=== PATIENT | male | born 1965 | race American Indian/Alaskan Native ===

== ENCOUNTER 2018-07-16 14:49 | Inpatient (IN) | payer MEDICAID, OTHER ==
--- NOTE | 2018-07-16 15:46 | EDM.PDOC ---
ED HPI GENERAL MEDICAL PROBLEM - General Chief Complaint: Diabetic Complaint Stated Complaint: AMBULANCE Time Seen by Provider: 07/16/18 15:43 Source of Information: Reports: Patient History Limitations: Reports: No Limitations - History of Present Illness INITIAL COMMENTS - FREE TEXT/NARRATIVE: was told by home health nurse to come for eval' is DM and not taking his Rx and decline to comment further. states doesn't feel well and legs been swollen few weeks not seen anyone for it. denies CP/SOB. is getting over a cold. - Related Data Allergies Allergy/AdvReac Type Severity Reaction Status Date / Time No Known Allergies Allergy Verified 07/16/18 15:09 Past Medical History HEENT History: Reports: Impaired Vision Cardiovascular History: Reports: Hypertension Other Cardiovascular History: Noncompliant HTN Endocrine/Metabolic History: Reports: Diabetes, Type II Other Endocrine/Metabolic History: noncompliant DM11 - Past Surgical History Musculoskeletal Surgical History: Reports: Amputation Social & Family History - Tobacco Use Smoking Status *Q: Former Smoker Used Tobacco, but Quit: Yes Month/Year Tobacco Last Used: 1999 - Caffeine Use Caffeine Use: Reports: Coffee, Soda - Recreational Drug Use Recreational Drug Use: No ED ROS GENERAL - Review of Systems Review Of Systems: ROS reveals no pertinent complaints other than HPI. ED EXAM GENERAL NO PERIP PULSE - Physical Exam Exam: See Below Exam Limited By: No Limitations General Appearance: Alert, WD/WN, Mild Distress, Other (general discomfort) Ears: Hearing Grossly Normal Throat/Mouth: Normal Voice, No Airway Compromise Head: Atraumatic Neck: Non-Tender, Full Range of Motion Respiratory/Chest: No Respiratory Distress, Rales, Rhonchi Cardiovascular: Regular Rate, Rhythm GI/Abdominal: Other (general discomfort) Extremities: Pedal Edema, Other (bilateral 3+ edema) Neurological: Alert, Oriented, Normal Cognition, Normal Gait, No Motor/Sensory Deficits Psychiatric: Flat Affect Skin Exam: Warm, Dry, Normal Color Lymphatic: No Adenopathy Course - Vital Signs Last Recorded V/S: Last Vital Signs Temp 37.3 C 07/16/18 15:09 Pulse 93 07/16/18 16:20 Resp 18 07/16/18 15:09 BP 154/87 H 07/16/18 16:20 Pulse Ox 100 07/16/18 16:20 - Orders/Labs/Meds Orders: Active Orders 24 hr Category Date Time Status UA RFX JON AND CULT IF INDIC [URIN] Stat Lab 07/16/18 15:42 Ordered Labs: Laboratory Tests 07/16/18 07/16/18 Range/Units 15:25 15:25 WBC 10.0 (5.0-10.0) 10^3/uL RBC 2.85 L (4.6-6.2) 10^6/uL Hgb 8.0 L (14.0-18.0) g/dL Hct 25.1 L (40.0-54.0) % MCV 88.1 (80-100) fL MCH 28.1 (27.0-34.0) pg MCHC 31.9 L (33.0-35.0) g/dL Plt Count 249 (150-450) 10^3/uL Neut % (Auto) 82.5 H (42.2-75.2) % Lymph % (Auto) 7.8 L (20.5-50.1) % [place] % (Auto) 7.2 (2-8) % Eos % (Auto) 2.4 (1.0-3.0) % Baso % (Auto) 0.1 (0.0-1.0) % Sodium 137 (135-145) mmol/L Potassium 4.1 (3.6-5.0) mmol/L Chloride 108 (101-111) mmol/L Carbon Dioxide 18.0 L (21.0-31.0) mmol/L Anion Gap 15.1 BUN 41 H (7-18) mg/dL Creatinine 2.7 H (0.6-1.3) mg/dL Est Cr Clr Drug Dosing 32.92 mL/min Estimated GFR (MDRD) 25 BUN/Creatinine Ratio 15.18 Glucose 125 H (74-105) mg/dL Calcium 8.1 L (8.4-10.2) mg/dl Total Bilirubin 1.3 H (0.2-1.0) mg/dL AST 24 (10-42) IU/L ALT 12 (10-60) IU/L Alkaline Phosphatase 93 (42-121) IU/L B-Natriuretic Peptide 3220 H (0-100) pg/ml Total Protein 7.6 (6.7-8.2) g/dl Albumin 2.6 L (3.2-5.5) g/dl Globulin 5.0 Albumin/Globulin Ratio 0.52 Amylase 50 (28-100) U/L Lipase 26 (22-51) U/L - Re-Assessments/Exams Free Text/Narrative Re-Assessment/Exam: 07/16/18 16:[address] Shepard who kindly admitted pt Departure - Departure Time of Disposition: 16:39 Disposition: Admitted As Inpatient 64 Condition: Fair Clinical Impression: CHF (congestive heart failure) Qualifiers: Heart failure type: unspecified Heart failure chronicity: unspecified Qualified Code(s): I50.9 - Heart failure, unspecified - Discharge Information Forms: ED Department Discharge - My Orders Last 24 Hours: My Active Orders 07/16/18 15:42 UA RFX JON AND CULT IF INDIC [URIN] Stat - Assessment/Plan Last 24 Hours: My Active Orders 07/16/18 15:42 UA RFX JON AND CULT IF INDIC [URIN] Stat
[2018-07-16 16:03] LABS: ANION GAP 15.1
--- NOTE | 2018-07-16 16:11 | CR ---
Clinical history: 53-year-old male with "poor lung sounds". Interpretation: Upright AP portable chest film reveals less than optimal inspiratory effort obese male. Midlung atelectasis or fluid in the minor fissure on the right. (No previous films for comparison) Cardiac silhouette crowded by diaphragms but no cephalization of flow, signs of alveolar edema or dependent pleural effusion. No lung mass, hilar lymphadenopathy or focal lobar pneumonia. No pneumothorax.
[2018-07-16] MEDS ORDERED: Ondansetron 4 MG Tab.DIS PO PRN (17:45)
[2018-07-16] MEDS ORDERED: Promethazine 25 MG Tab PO PRN (17:45)
[2018-07-16] MEDS ORDERED: Acetaminophen 325 MG Tab PO PRN (17:45)
[2018-07-16] MEDS ORDERED: Bisacodyl 5 MG Tab PO PRN (17:45)
[2018-07-16] MEDS ORDERED: Ondansetron 4 MG/2 ML SDV IVPUSH PRN (17:45)
[2018-07-16] MEDS ORDERED: Docusate Sodium 100 MG Cap PO PRN (17:45)
[2018-07-16] MEDS ORDERED: Furosemide 40 MG/4 ML VIAL IVPUSH ONE (17:53)
--- NOTE | 2018-07-16 17:59 | PCM.HP ---
H&P History of Present Illness - General Date of Service: 07/16/18 Admit Problem/Dx: Admission Diagnosis/Problem Admission Diagnosis/Problem Sepsis, anasarca, acute renal failure Source of Information: Patient - History of Present Illness Initial Comments - Free Text/Narative: Mr. 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 He reports that his sister has a visiting nurse who came to attend to the patient' s sister today. Nurse was asked to see him due to discharge from his left foot. He states that the nurse told him to come to the ED. He reports that his foot has been having discharge and malodor for a few days. Also states that he noticed that there is "fluid in my legs" today. He denies foot pain, fevers, chills, chest pain, nausea, abdominal pain, diarrhea, constipation, dysuria, hematuria, or any other symptoms. He reports that he is on insulin but does not recall the amount he is supposed to take. Also reports that he takes a medication for blood pressure. On chart review, patient was seen in [facility] in 2007 for necrotic right second toe. At that time he was on Lisinopril 10 mg PO daily. He was also on novolog 5 units TID and lantus 1 unit at bedtime. - Related Data Allergies/Adverse Reactions: Allergies Allergy/AdvReac Type Severity Reaction Status Date / Time No Known Allergies Allergy Verified 07/16/18 18:30 Home Medications: Home Meds . [Unable to Verify Home Med List] 07/16/18 [History] Past Medical History HEENT History: Reports: Impaired Vision Cardiovascular History: Reports: Hypertension Other Cardiovascular History: Noncompliant HTN Musculoskeletal History: Reports: Other (See Below) (Osteomyelitis) Endocrine/Metabolic History: Reports: Diabetes, Type II Other Endocrine/Metabolic History: noncompliant DM11 - Past Surgical History Musculoskeletal Surgical History: Reports: Amputation (Second toe of right foot. ) Social & Family History - Tobacco Use Smoking Status *Q: Former Smoker Used Tobacco, but Quit: Yes Month/Year Tobacco Last Used: 1999 - Caffeine Use Caffeine Use: Reports: Coffee, Soda - Alcohol Use Alcohol Use History: Yes Days Per Week of Alcohol Use: 1 Total Drinks Per Week Comment: 6 Alcohol Use Frequency: Binges, Weekly - Recreational Drug Use Recreational Drug Use: No H&P Review of Systems - Review of Systems: Review Of Systems: ROS reveals no pertinent complaints other than HPI. Exam - Exam Exam: See Below - Vital Signs Vital Signs: Last Vital Signs Temp 98.2 F 07/16/18 17:34 Pulse 102 H 07/16/18 17:34 Resp 20 07/16/18 17:34 BP 172/100 H 07/16/18 17:34 Pulse Ox 100 07/16/18 17:34 Weight: 280 lb - Exam General: Alert, Oriented, Cooperative HEENT: Conjunctiva Clear, EOMI, Hearing Intact, Mucosa Moist & [place] Neck: Supple, Trachea Midline Lungs: Clear to Auscultation, Normal Respiratory Effort Cardiovascular: Regular Rate, Regular Rhythm GI/Abdominal Exam: Normal Bowel Sounds, Soft Extremities: Other (4+ edema of bilateral lower extremities extending into the groin. Charcot deformity of the right foot, 2nd right toe amputation, purulent discharge from left toes, chronic venous stasis hyperpigmentation of bilateral lower extremities, onychomycosis. ) Skin: Other (Anasarca) Neuro Extensive - Mental Status: Alert, Oriented x3, Normal Mood/Affect, Normal Cognition, Memory Intact Psychiatric: Alert, Normal Affect, Normal Mood - Patient Data Lab Results Last 24 hrs: Laboratory Results - last 24 hr 07/16/18 07/16/18 Range/Units 15:25 15:25 WBC 10.0 (5.0-10.0) 10^3/uL RBC 2.85 L (4.6-6.2) 10^6/uL Hgb 8.0 L (14.0-18.0) g/dL Hct 25.1 L (40.0-54.0) % MCV 88.1 (80-100) fL MCH 28.1 (27.0-34.0) pg MCHC 31.9 L (33.0-35.0) g/dL Plt Count 249 (150-450) 10^3/uL Neut % (Auto) 82.5 H (42.2-75.2) % Lymph % (Auto) 7.8 L (20.5-50.1) % [place] % (Auto) 7.2 (2-8) % Eos % (Auto) 2.4 (1.0-3.0) % Baso % (Auto) 0.1 (0.0-1.0) % Sodium 137 (135-145) mmol/L Potassium 4.1 (3.6-5.0) mmol/L Chloride 108 (101-111) mmol/L Carbon Dioxide 18.0 L (21.0-31.0) mmol/L Anion Gap 15.1 BUN 41 H (7-18) mg/dL Creatinine 2.7 H (0.6-1.3) mg/dL Est Cr Clr Drug Dosing 32.92 mL/min Estimated GFR (MDRD) 25 BUN/Creatinine Ratio 15.18 Glucose 125 H (74-105) mg/dL Calcium 8.1 L (8.4-10.2) mg/dl Total Bilirubin 1.3 H (0.2-1.0) mg/dL AST 24 (10-42) IU/L ALT 12 (10-60) IU/L Alkaline Phosphatase 93 (42-121) IU/L B-Natriuretic Peptide 3220 H (0-100) pg/ml Total Protein 7.6 (6.7-8.2) g/dl Albumin 2.6 L (3.2-5.5) g/dl Globulin 5.0 Albumin/Globulin Ratio 0.52 Amylase 50 (28-100) U/L Lipase 26 (22-51) U/L Result Diagrams: 07/16/18 15:25 07/16/18 15:25 - Problem List (1) Sepsis due to cellulitis SNOMED Code(s): 20691892 ICD Code: L03.90 - CELLULITIS, UNSPECIFIED; A41.9 - SEPSIS, UNSPECIFIED ORGANISM Status: Acute Current Visit: Yes (2) Anasarca associated with disorder of kidney SNOMED Code(s): 01497823488134 ICD Code: N04.9 - NEPHROTIC SYNDROME WITH UNSPECIFIED MORPHOLOGIC CHANGES Status: Acute Current Visit: Yes (3) Acute renal failure SNOMED Code(s): 18912756 ICD Code: N17.9 - ACUTE KIDNEY FAILURE, UNSPECIFIED Status: Acute Current Visit: Yes (4) Diabetes mellitus SNOMED Code(s): 03672218 ICD Code: E11.9 - TYPE 2 DIABETES MELLITUS WITHOUT COMPLICATIONS Status: Acute Current Visit: Yes (5) Poor oral hygiene SNOMED Code(s): 515730408 ICD Code: Z91.89 - OTH PERSONAL RISK FACTORS, NOT ELSEWHERE CLASSIFIED Status: Acute Current Visit: Yes (6) Non-adherence to medical treatment SNOMED Code(s): 134412713 ICD Code: Z91.19 - PATIENT'S NONCOMPLIANCE W OTH MEDICAL TREATMENT AND REGIMEN Status: Acute Current Visit: Yes (7) Metabolic acidosis SNOMED Code(s): 88998200 ICD Code: E87.2 - ACIDOSIS Status: Acute Current Visit: Yes (8) Hypertension SNOMED Code(s): 84924476 ICD Code: I10 - ESSENTIAL (PRIMARY) HYPERTENSION Status: Acute Current Visit: Yes (9) CHF (congestive heart failure) SNOMED Code(s): 54542943 ICD Code: I50.9 - HEART FAILURE, UNSPECIFIED Status: Acute Current Visit : No Qualifiers: Heart failure type: unspecified Heart failure chronicity: unspecified Qualified Code(s): I50.9 - Heart failure, unspecified Problem List Initiated/Reviewed/Updated: Yes Orders Last 24hrs: Active Orders 24 hr Category Date Time Status Patient Status [ADT] Routine ADT 07/16/18 17:45 Ordered Blood Glucose Check, Bedside [RC] QIDACANDBED Care 07/16/18 17:45 Ordered Cardiac Monitoring [RC] CONTINUOUS Care 07/16/18 17:46 Ordered Height and Weight [RC] DAILY Care 07/16/18 17:45 Ordered Intake and Output [RC] QSHIFT Care 07/16/18 17:46 Ordered Oxygen Therapy [RC] PRN Care 07/16/18 17:45 Ordered Pulse Oximetry [RC] CONTINUOUS Care 07/16/18 17:46 Ordered Up ad [place] [RC] ASDIRECTED Care 07/16/18 17:45 Ordered VTE/DVT Education [RC] PER UNIT ROUTINE Care 07/16/18 17:45 Ordered Vital Signs [RC] Q4H Care 07/16/18 17:45 Ordered Nothing per Oral After Midnight Diet [DIET] Diet 07/17/18 Breakfast Ordered Foot wo Cont Bi [CT] Routine Exams 07/16/18 17:51 Ordered C-REACTIVE PROTEIN [REF] Routine Lab 07/16/18 17:45 Ordered CULTURE BLOOD [BC] Stat Lab 07/16/18 17:50 Ordered CULTURE BLOOD [BC] Stat Lab 07/16/18 17:50 Ordered ESR [SEDIMENTATION RATE MANUAL] [HEME] Routine Lab 07/16/18 17:52 Ordered UA RFX JON AND CULT IF INDIC [URIN] Stat Lab 07/16/18 15:42 Ordered Acetaminophen [Tylenol] Med 07/16/18 17:45 Ordered 650 mg PO Q4H PRN Bisacodyl [Dulcolax] Med 07/16/18 17:45 Ordered 5 mg PO DAILY PRN Docusate Sodium [Colace] Med 07/16/18 17:45 Ordered 100 mg PO BID PRN Furosemide [Lasix] Med 07/16/18 17:53 Once 80 mg IVPUSH NOW ONE Heparin Sodium Med 07/16/18 22:00 Ordered 5,000 units SUBCUT Q8HR Ondansetron [Zofran ODT] Med 07/16/18 17:45 Ordered 4 mg PO Q6H PRN Ondansetron [Zofran] Med 07/16/18 17:45 Ordered 4 mg IVPUSH Q6H PRN Promethazine [Phenergan] Med 07/16/18 17:45 Ordered 25 mg PO Q6H PRN Blood Culture x2 Reflex Set [OM.PC] Stat Oth 07/16/18 17:45 Ordered Resuscitation Status Routine Resus Stat 07/16/18 17:45 Ordered Medication Orders Acetaminophen (Tylenol) 650 mg PO Q4H PRN PRN Reason: Pain Bisacodyl (Dulcolax) 5 mg PO DAILY PRN PRN Reason: Constipation Docusate Sodium (Colace) 100 mg PO BID PRN PRN Reason: Constipation Furosemide (Lasix) 80 mg IVPUSH NOW ONE Stop: 07/16/18 17:54 Heparin Sodium (Porcine) (Heparin Sodium) 5,000 units SUBCUT Q8HR DANDY Ondansetron HCl (Zofran Odt) 4 mg PO Q6H PRN PRN Reason: nausea, able to take PO Ondansetron HCl (Zofran) 4 mg IVPUSH Q6H PRN PRN Reason: Nausea/Vomiting Promethazine HCl (Phenergan) 25 mg PO Q6H PRN PRN Reason: nausea, able to take PO Assessment/Plan Comment:: #Sepsis due to cellulitis/probable osteomyelitis: patient with malodorus drainage from left foot and swelling of the right foot concerning for osteomyelitis but definitely cellulitic. - Admit to inpatient - Obtain 2 sets of blood cultures - Received Clindamycin in the ED. - Check ESR and CRP - CT of the feet, without contrast due to renal function. - Vancomycin and Zosyn - NPO #Probable acute CHF: - Elevated BNP with anasarca. - 80 mg IV lasix x1 - Strict I/Os - Daily standing weights. - If adequate diuresis, will keep on 60 mg of lasix BID - Monitor renal function/electrolytes. - Echocardiogram - NPO after midnight. #Acute renal failure: Cr of 2.7; Bicarb of 18. Last documented Cr was 0.8 in 2007. - Suspect Cardiorenal syndrome - IV diuresis - Monitor renal function - Renally dose all medications - Avoid nephrotoxins. #DM: uncertain type. - Check Hb A1c - Start on Humalog 10 units with meals and Lantus 30 units qHS - Accuchecks AC and HS - SSI and hypoglycemia protocol. #Anemia: could be due to chronic disease or slow blood loss. Normocytic. - Obtain Iron profile - Monitor CBC, transfuse for Hb <7 or if symptomatic. DVT PPx: Heparin GI ppx: Protonix
[2018-07-16] MEDS ORDERED: 50% Dextrose in Water 50 ML Syringe IVPUSH PRN (18:40)
[2018-07-16] MEDS ORDERED: Glucagon,Human Recombinant 1 MG Vial IM PRN (18:40)
[2018-07-16] MEDS: Piperacillin/Tazobactam 3.375 GM in Sodium Chloride 0.9% 100 ML IV SCH ×2 (18:50→23:39)
[2018-07-16] MEDS ORDERED: Vancomycin 1.5 GM in Sodium Chloride 0.9% 500 ML IV SCH (19:00)
[2018-07-16] MEDS ORDERED: Insulin Glarg,Human.Rec.Analog 100 UNIT/ML ML SUBCUT SCH (21:00)
[2018-07-16] MEDS: Heparin Sodium 5,000 Units/ML Vial SUBCUT SCH (21:39)
[2018-07-16] MEDS: Sodium Chloride 0.9% 10 ML Syringe FLUSH PRN (23:39)
[2018-07-17] MEDS: Piperacillin/Tazobactam 3.375 GM in Sodium Chloride 0.9% 100 ML IV SCH ×3 (05:33→18:03)
[2018-07-17] MEDS: Sodium Chloride 0.9% 10 ML Syringe FLUSH PRN ×3 (05:33→22:34)
[2018-07-17] MEDS: Heparin Sodium 5,000 Units/ML Vial SUBCUT SCH ×3 (05:38→21:46)
[2018-07-17] MEDS: Insulin Lispro 100 Units/ML 3 ML Vial SUBCUT SCH ×2 (08:01→13:08)
[2018-07-17 09:18] LABS: ANION GAP 14.9
--- NOTE | 2018-07-17 12:28 | PCM.PN ---
- General Info Date of Service: 07/17/18 Admission Dx/Problem (Free Text): Admission Diagnosis/Problem Admission Diagnosis/Problem Sepsis, anasarca, acute renal failure Functional Status: Reports: Tolerating Diet, Ambulating, Urinating - Review of Systems General: Reports: No Symptoms HEENT: Reports: No Symptoms Pulmonary: Reports: Shortness of Breath Cardiovascular: Reports: No Symptoms Gastrointestinal: Reports: No Symptoms Genitourinary: Reports: No Symptoms Musculoskeletal: Reports: Joint Swelling Skin: Reports: No Symptoms Neurological: Reports: No Symptoms Psychiatric: Reports: No Symptoms - Patient Data Vitals - Most Recent: Last Vital Signs Temp 99.2 F 07/17/18 07:08 Pulse 92 07/17/18 07:08 Resp 16 07/17/18 07:08 BP 137/58 L 07/17/18 07:08 Pulse Ox 97 07/17/18 07:08 Weight - Most Recent: 262 lb 9.6 oz I&O - Last 24 Hours: Intake & Output 07/16/18 07/17/18 07/17/18 22:59 06:59 14:59 Intake Total 849 357 Output Total 600 1600 650 Balance 249 1243 -650 Lab Results Last 24 Hours: Laboratory Results - last 24 hr 07/16/18 07/16/18 07/16/18 Range/Units 15:25 15:25 15:25 WBC 10.0 (5.0-10.0) 10^3/uL RBC 2.85 L (4.6-6.2) 10^6/uL Hgb 8.0 L (14.0-18.0) g/dL Hct 25.1 L (40.0-54.0) % MCV 88.1 (80-100) fL MCH 28.1 (27.0-34.0) pg MCHC 31.9 L (33.0-35.0) g/dL Plt Count 249 (150-450) 10^3/uL Neut % (Auto) 82.5 H (42.2-75.2) % Lymph % (Auto) 7.8 L (20.5-50.1) % Evans % (Auto) 7.2 (2-8) % Eos % (Auto) 2.4 (1.0-3.0) % Baso % (Auto) 0.1 (0.0-1.0) % ESR 105 H (0-15) mm/hr Sodium 137 (135-145) mmol/L Potassium 4.1 (3.6-5.0) mmol/L Chloride 108 (101-111) mmol/L Carbon Dioxide 18.0 L (21.0-31.0) mmol/L Anion Gap 15.1 BUN 41 H (7-18) mg/dL Creatinine 2.7 H (0.6-1.3) mg/dL Est Cr Clr Drug Dosing 32.92 mL/min Estimated GFR (MDRD) 25 BUN/Creatinine Ratio 15.18 Glucose 125 H (74-105) mg/dL POC Glucose (70-105) mg/dl Calcium 8.1 L (8.4-10.2) mg/dl Phosphorus (2.5-4.6) mg/dL Magnesium (1.8-2.5) mg/dL Total Bilirubin 1.3 H (0.2-1.0) mg/dL AST 24 (10-42) IU/L ALT 12 (10-60) IU/L Alkaline Phosphatase 93 (42-121) IU/L C-Reactive Protein (0.0-1.3) mg/dL B-Natriuretic Peptide 3220 H (0-100) pg/ml Total Protein 7.6 (6.7-8.2) g/dl Albumin 2.6 L (3.2-5.5) g/dl Globulin 5.0 Albumin/Globulin Ratio 0.52 Amylase 50 (28-100) U/L Lipase 26 (22-51) U/L Urine Color (YELLOW) Urine Appearance (CLEAR) Urine pH (5.0-9.0) Ur Specific [place] (1.005-1.030) Urine Protein (NEGATIVE) Urine Glucose (UA) (NEGATIVE) Urine Ketones (NEGATIVE) Urine Occult Blood (NEGATIVE) Urine Nitrite (NEGATIVE) Urine Bilirubin (NEGATIVE) Urine Urobilinogen (0.2-1.0) mg/dL Ur Leukocyte Esterase (NEGATIVE) Urine RBC /HPF Urine WBC (0-5/HPF) /HPF Ur Epithelial Cells /HPF Urine Bacteria (0-FEW/HPF) /HPF Urine Mucus /LPF Urine Yeast (0/HPF) /HPF 07/16/18 07/16/18 07/16/18 Range/Units 15:25 19:20 21:04 WBC (5.0-10.0) 10^3/uL RBC (4.6-6.2) 10^6/uL Hgb (14.0-18.0) g/dL Hct (40.0-54.0) % MCV (80-100) fL MCH (27.0-34.0) pg MCHC (33.0-35.0) g/dL Plt Count (150-450) 10^3/uL Neut % (Auto) (42.2-75.2) % Lymph % (Auto) (20.5-50.1) % Evans % (Auto) (2-8) % Eos % (Auto) (1.0-3.0) % Baso % (Auto) (0.0-1.0) % ESR (0-15) mm/hr Sodium (135-145) mmol/L Potassium (3.6-5.0) mmol/L Chloride (101-111) mmol/L Carbon Dioxide (21.0-31.0) mmol/L Anion Gap BUN (7-18) mg/dL Creatinine (0.6-1.3) mg/dL Est Cr Clr Drug Dosing mL/min Estimated GFR (MDRD) BUN/Creatinine Ratio Glucose (74-105) mg/dL POC Glucose 145 H (70-105) mg/dl Calcium (8.4-10.2) mg/dl Phosphorus (2.5-4.6) mg/dL Magnesium (1.8-2.5) mg/dL Total Bilirubin (0.2-1.0) mg/dL AST (10-42) IU/L ALT (10-60) IU/L Alkaline Phosphatase (42-121) IU/L C-Reactive Protein 9.4 H (0.0-1.3) mg/dL B-Natriuretic Peptide (0-100) pg/ml Total Protein (6.7-8.2) g/dl Albumin (3.2-5.5) g/dl Globulin Albumin/Globulin Ratio Amylase (28-100) U/L Lipase (22-51) U/L Urine Color Yellow (YELLOW) Urine Appearance Clear (CLEAR) Urine pH 5.5 (5.0-9.0) Ur Specific [place] 1.020 (1.005-1.030) Urine Protein >=300 H (NEGATIVE) Urine Glucose (UA) Negative (NEGATIVE) Urine Ketones Negative (NEGATIVE) Urine Occult Blood Moderate H (NEGATIVE) Urine Nitrite Negative (NEGATIVE) Urine Bilirubin Negative (NEGATIVE) Urine Urobilinogen 1.0 (0.2-1.0) mg/dL Ur Leukocyte Esterase Negative (NEGATIVE) Urine RBC 30-40 H /HPF Urine WBC 0-5 (0-5/HPF) /HPF Ur Epithelial Cells Few /HPF Urine Bacteria Few (0-FEW/HPF) /HPF Urine Mucus Few H /LPF Urine Yeast Few H (0/HPF) /HPF 07/17/18 07/17/18 07/17/18 Range/Units 06:55 08:52 08:52 WBC 6.8 (5.0-10.0) 10^3/uL RBC 2.65 L (4.6-6.2) 10^6/uL Hgb 7.4 L (14.0-18.0) g/dL Hct 23.7 L (40.0-54.0) % MCV 89.4 (80-100) fL MCH 27.9 (27.0-34.0) pg MCHC 31.2 L (33.0-35.0) g/dL Plt Count 187 (150-450) 10^3/uL Neut % (Auto) (42.2-75.2) % Lymph % (Auto) (20.5-50.1) % Evans % (Auto) (2-8) % Eos % (Auto) (1.0-3.0) % Baso % (Auto) (0.0-1.0) % ESR (0-15) mm/hr Sodium 137 (135-145) mmol/L Potassium 3.9 (3.6-5.0) mmol/L Chloride 109 (101-111) mmol/L Carbon Dioxide 17.0 L (21.0-31.0) mmol/L Anion Gap 14.9 BUN 43 H (7-18) mg/dL Creatinine 2.8 H (0.6-1.3) mg/dL Est Cr Clr Drug Dosing 30.78 mL/min Estimated GFR (MDRD) 24 BUN/Creatinine Ratio Glucose 100 (74-105) mg/dL POC Glucose 92 (70-105) mg/dl Calcium 7.8 L (8.4-10.2) mg/dl Phosphorus 3.4 (2.5-4.6) mg/dL Magnesium 1.7 L (1.8-2.5) mg/dL Total Bilirubin (0.2-1.0) mg/dL AST (10-42) IU/L ALT (10-60) IU/L Alkaline Phosphatase (42-121) IU/L C-Reactive Protein (0.0-1.3) mg/dL B-Natriuretic Peptide (0-100) pg/ml Total Protein (6.7-8.2) g/dl Albumin (3.2-5.5) g/dl Globulin Albumin/Globulin Ratio Amylase (28-100) U/L Lipase (22-51) U/L Urine Color (YELLOW) Urine Appearance (CLEAR) Urine pH (5.0-9.0) Ur Specific [place] (1.005-1.030) Urine Protein (NEGATIVE) Urine Glucose (UA) (NEGATIVE) Urine Ketones (NEGATIVE) Urine Occult Blood (NEGATIVE) Urine Nitrite (NEGATIVE) Urine Bilirubin (NEGATIVE) Urine Urobilinogen (0.2-1.0) mg/dL Ur Leukocyte Esterase (NEGATIVE) Urine RBC /HPF Urine WBC (0-5/HPF) /HPF Ur Epithelial Cells /HPF Urine Bacteria (0-FEW/HPF) /HPF Urine Mucus /LPF Urine Yeast (0/HPF) /HPF Med Orders - Current: Current Medications Acetaminophen (Tylenol) 650 mg PO Q4H PRN PRN Reason: Pain Bisacodyl (Dulcolax) 5 mg PO DAILY PRN PRN Reason: Constipation Dextrose/Water (Dextrose 50% In Water) 25 ml IVPUSH ASDIRECTED PRN PRN Reason: Hypoglycemia Docusate Sodium (Colace) 100 mg PO BID PRN PRN Reason: Constipation Glucagon (Glucagen) 1 mg IM ONETIME PRN PRN Reason: Hypoglycemia Heparin Sodium (Porcine) (Heparin Sodium) 5,000 units SUBCUT Q8HR [facility] Last Admin: 07/17/18 05:38 Dose: 5,000 units Piperacillin Sod/Tazobactam (Sod 3.375 gm/ Sodium Chloride) 100 mls @ 200 mls/ hr IV Q6H [facility] Last Infusion: 07/17/18 06:12 Dose: Infused Vancomycin HCl 1.5 gm/ Sodium (Chloride) 500 mls @ 333.333 mls/hr IV Q24H [facility] Last Admin: 07/16/18 19:43 Dose: 250 mls/hr Insulin Glargine (Lantus) 30 unit SUBCUT BEDTIME [facility] Last Admin: 07/16/18 21:45 Dose: Not Given Insulin Human Lispro (Humalog) 10 unit SUBCUT TIDAC [facility] Last Admin: 07/17/18 08:01 Dose: Not Given Ondansetron HCl (Zofran Odt) 4 mg PO Q6H PRN PRN Reason: nausea, able to take PO Ondansetron HCl (Zofran) 4 mg IVPUSH Q6H PRN PRN Reason: Nausea/Vomiting Promethazine HCl (Phenergan) 25 mg PO Q6H PRN PRN Reason: nausea, able to take PO Sodium Bicarbonate (Sodium Bicarbonate) 650 mg PO TID [facility] Sodium Chloride (Saline Flush) 10 ml FLUSH ASDIRECTED PRN PRN Reason: IV Use Last Admin: 07/17/18 05:33 Dose: 10 ml Vancomycin HCl (Pharmacy To Dose - Vancomycin) 1 dose .XX ASDIRECTED [facility] Discontinued Medications Furosemide (Lasix) 80 mg IVPUSH NOW ONE Stop: 07/16/18 17:54 Last Admin: 07/16/18 18:50 Dose: 80 mg - Exam General: Alert, Oriented HEENT: Pupils Equal, Pupils Reactive, EOMI, Mucous Membr. Moist/[place] Lungs: Normal Respiratory Effort, Crackles Cardiovascular: Regular Rate, Regular Rhythm, Tachycardia GI/Abdominal Exam: Normal Bowel Sounds, Non-Tender, Distended (with shifting dullness and fluid wave. ) Extremities: Pedal Edema (Edema of bilateral lower extremities up to the groin, 4++ Left arm with 2+ pitting edema.) Peripheral Pulses: 2+: Radial (L), Radial (R) Neurological: No New Focal Deficit Psy/Mental Status: Alert, Normal Affect - Problem List & Annotations (1) Sepsis due to cellulitis SNOMED Code(s): 71942529 Code(s): L03.90 - CELLULITIS, UNSPECIFIED; A41.9 - SEPSIS, UNSPECIFIED ORGANISM Status: Acute Current Visit: Yes (2) Anasarca associated with disorder of kidney SNOMED Code(s): 20038942411015 Code(s): N04.9 - NEPHROTIC SYNDROME WITH UNSPECIFIED MORPHOLOGIC CHANGES Status: Acute Current Visit: Yes (3) Acute renal failure SNOMED Code(s): 81271903 Code(s): N17.9 - ACUTE KIDNEY FAILURE, UNSPECIFIED Status: Acute Current Visit: Yes (4) Diabetes mellitus SNOMED Code(s): 56266040 Code(s): E11.9 - TYPE 2 DIABETES MELLITUS WITHOUT COMPLICATIONS Status: Acute Current Visit: Yes (5) Poor oral hygiene SNOMED Code(s): 555032850 Code(s): Z91.89 - OTH PERSONAL RISK FACTORS, NOT ELSEWHERE CLASSIFIED Status: Acute Current Visit: Yes (6) Non-adherence to medical treatment SNOMED Code(s): 327227581 Code(s): Z91.19 - PATIENT'S NONCOMPLIANCE W OTH MEDICAL TREATMENT AND REGIMEN Status: Acute Current Visit: Yes (7) Metabolic acidosis SNOMED Code(s): 63308483 Code(s): E87.2 - ACIDOSIS Status: Acute Current Visit: Yes (8) Hypertension SNOMED Code(s): 85978145 Code(s): I10 - ESSENTIAL (PRIMARY) HYPERTENSION Status: Acute Current Visit: Yes (9) CHF (congestive heart failure) SNOMED Code(s): 12168496 Code(s): I50.9 - HEART FAILURE, UNSPECIFIED Status: Acute Current Visit: No Qualifiers: Heart failure type: unspecified Heart failure chronicity: unspecified Qualified Code(s): I50.9 - Heart failure, unspecified - Problem List Review Problem List Initiated/Reviewed/Updated: Yes - My Orders Last 24 Hours: My Active Orders 07/16/18 15:25 CULTURE BLOOD [BC] Stat GLYCOSYLATED HEMOGLOBIN (HA1C) [REF] Routine IRON PNL (FE, TIBC, ETHAN, %SAT) [REF] Routine 07/16/18 17:45 Patient Status [ADT] Routine Blood Glucose Check, Bedside [RC] QIDACANDBED Height and Weight [RC] 0600 Oxygen Therapy [RC] PRN Up ad Perlita [RC] ASDIRECTED VTE/DVT Education [RC] PER UNIT ROUTINE Vital Signs [RC] Q4H Acetaminophen [Tylenol] 650 mg PO Q4H PRN Bisacodyl [Dulcolax] 5 mg PO DAILY PRN Docusate Sodium [Colace] 100 mg PO BID PRN Ondansetron [Zofran ODT] 4 mg PO Q6H PRN Ondansetron [Zofran] 4 mg IVPUSH Q6H PRN Promethazine [Phenergan] 25 mg PO Q6H PRN Blood Culture x2 Reflex Set [OM.PC] Stat 07/16/18 17:46 Cardiac Monitoring [RC] 09,21 Intake and Output [RC] QSHIFT Pulse Oximetry [RC] CONTINUOUS 07/16/18 17:51 Foot wo Cont Bi [CT] Routine 07/16/18 18:00 Piperacillin/Tazobactam [Zosyn] 3.375 gm Sodium Chloride 0.9% [Normal Saline] 100 ml IV Q6H 07/16/18 18:15 Pharmacy to Dose - Vancomycin 1 dose .XX ASDIRECTED 07/16/18 18:26 CULTURE BLOOD [BC] Stat 07/16/18 18:34 Code Status [Resuscitation Status] Routine 07/16/18 18:40 Diabetes Education [RC] Click to Edit Notify Provider [RC] PRN Consult to [employer] [CONS] Routine Dextrose 50% in Water 25 ml IVPUSH ASDIRECTED PRN Glucagon,Human Recombinant [GlucaGen] 1 mg IM ONETIME PRN 07/16/18 19:00 Vancomycin 1.5 gm Sodium Chloride 0.9% [Normal Saline] 500 ml IV Q24H 07/16/18 21:00 Insulin Glarg,Human.Rec.Analog [LantUS] 30 unit SUBCUT BEDTIME 07/16/18 22:00 Heparin Sodium 5,000 units SUBCUT Q8HR 07/16/18 22:12 Sodium Chloride 0.9% [Saline Flush] 10 ml FLUSH ASDIRECTED PRN 07/17/18 07:55 Foot wo Cont Lt [MR] Routine Foot wo Cont Rt [MR] Routine 07/17/18 08:00 Insulin Lispro [HumaLOG] 10 unit SUBCUT TIDAC 07/17/18 14:00 Sodium Bicarbonate 650 mg PO TID 07/17/18 Breakfast Nothing per Oral After Midnight Diet [DIET] 07/20/18 18:30 VANCOMYCIN TROUGH [CHEM] Timed - Plan Plan:: #Sepsis due to cellulitis/probable osteomyelitis: patient with malodorus drainage from left foot and swelling of the right foot concerning for osteomyelitis but definitely cellulitic. - Follow up on blood cultures - Received Clindamycin in the ED. - ESR and CRP elevated. - CT of the feet, without contrast due to renal function. - Vancomycin and Zosyn - MRI of bilateral feet #Probable acute CHF/anasarca: - Elevated BNP with anasarca. - 80 mg IV lasix BID - Strict I/Os - Daily standing weights. - Monitor renal function/electrolytes. - Echocardiogram #Acute renal failure: Cr of 2.7; Bicarb of 18. Last documented Cr was 0.8 in 2007. - Suspect Cardiorenal syndrome - IV diuresis - Monitor renal function - Renally dose all medications - Avoid nephrotoxins. #DM: uncertain type. - Check Hb A1c - Accuchecks AC and HS - SSI and hypoglycemia protocol. #Anemia: could be due to chronic disease or slow blood loss. Normocytic. - Obtain Iron profile - Monitor CBC, transfuse for Hb <7 or if symptomatic. #metabolic acidosis: - Sodium bicarb replacement #Poor oral care - Outpatient follow up with dentist. DVT PPx: Heparin GI ppx: Protonix
[2018-07-17] MEDS: Furosemide 40 MG/4 ML VIAL IVPUSH SCH (13:37)
[2018-07-17] MEDS: Sodium Bicarbonate 650 MG Tab PO SCH ×2 (13:40→20:24)
[2018-07-17] MEDS: Mineral Oil/White Petrolatum Crm 113 GM Jar TOP PRN (16:24)
[2018-07-17] MEDS: Vancomycin 1.5 GM in Sodium Chloride 0.9% 500 ML IV SCH (20:20)
[2018-07-18] MEDS: Heparin Sodium 5,000 Units/ML Vial SUBCUT SCH ×3 (05:51→21:46)
[2018-07-18 06:59] LABS: ANION GAP 13.9
[2018-07-18] MEDS: Furosemide 40 MG/4 ML VIAL IVPUSH SCH ×2 (07:55→14:49)
[2018-07-18] MEDS: Sodium Bicarbonate 650 MG Tab PO SCH ×3 (08:01→20:37)
[2018-07-18] MEDS: Mineral Oil/White Petrolatum Crm 113 GM Jar TOP PRN (10:07)
--- NOTE | 2018-07-18 10:37 | PCM.PN ---
- General Info Date of Service: 07/18/18 Admission Dx/Problem (Free Text): Admission Diagnosis/Problem Admission Diagnosis/Problem Sepsis, anasarca, acute renal failure Subjective Update: No acute events overnight. Reports that he is doing okay. Voiding a lot. Denies chest pain, shortness of breath, fevers, chills, abd pain, n/v/d/c, no dysuria or hematuria, no foot pain. - Review of Systems General: Reports: No Symptoms HEENT: Reports: No Symptoms Pulmonary: Reports: No Symptoms Cardiovascular: Reports: No Symptoms Gastrointestinal: Reports: No Symptoms Genitourinary: Reports: No Symptoms Musculoskeletal: Reports: No Symptoms (Edema), Other Skin: Reports: No Symptoms Neurological: Reports: No Symptoms Psychiatric: Reports: No Symptoms - Patient Data Vitals - Most Recent: Last Vital Signs Temp 98.4 F 07/18/18 07:35 Pulse 87 07/18/18 07:35 Resp 20 07/18/18 07:35 BP 137/85 07/18/18 07:35 Pulse Ox 100 07/18/18 07:35 Weight - Most Recent: 262 lb 9.6 oz I&O - Last 24 Hours: Intake & Output 07/17/18 07/18/18 07/18/18 22:59 06:59 14:59 Intake Total 1507 1030 460 Output Total 400 1480 Balance 1107 -450 460 Lab Results Last 24 Hours: Laboratory Results - last 24 hr 07/16/18 07/17/18 07/17/18 Range/Units 15:25 12:00 14:02 WBC (5.0-10.0) 10^3/uL RBC (4.6-6.2) 10^6/uL Hgb 7.6 L (14.0-18.0) g/dL Hct 23.9 L (40.0-54.0) % MCV (80-100) fL MCH (27.0-34.0) pg MCHC (33.0-35.0) g/dL Plt Count (150-450) 10^3/uL Sodium (135-145) mmol/L Potassium (3.6-5.0) mmol/L Chloride (101-111) mmol/L Carbon Dioxide (21.0-31.0) mmol/L Anion Gap BUN (7-18) mg/dL Creatinine (0.6-1.3) mg/dL Est Cr Clr Drug Dosing mL/min Estimated GFR (MDRD) Glucose (74-105) mg/dL POC Glucose 98 (70-105) mg/dl Calcium (8.4-10.2) mg/dl Iron 22 L (50-150) ug/dL TIBC 156 L (261-478) ug/dL Unsaturated IBC 134 L (155-355) ug/dL Transferrin % Sat 14.1 L (20.0-50.0) % Ferritin 233 (24-336) ng/mL 07/17/18 07/17/18 07/18/18 Range/Units 16:48 20:48 06:16 WBC 6.5 (5.0-10.0) 10^3/uL RBC 2.58 L (4.6-6.2) 10^6/uL Hgb 7.2 L (14.0-18.0) g/dL Hct 23.0 L (40.0-54.0) % MCV 89.1 (80-100) fL MCH 27.9 (27.0-34.0) pg MCHC 31.3 L (33.0-35.0) g/dL Plt Count 215 (150-450) 10^3/uL Sodium (135-145) mmol/L Potassium (3.6-5.0) mmol/L Chloride (101-111) mmol/L Carbon Dioxide (21.0-31.0) mmol/L Anion Gap BUN (7-18) mg/dL Creatinine (0.6-1.3) mg/dL Est Cr Clr Drug Dosing mL/min Estimated GFR (MDRD) Glucose (74-105) mg/dL POC Glucose 113 H 150 H (70-105) mg/dl Calcium (8.4-10.2) mg/dl Iron (50-150) ug/dL TIBC (261-478) ug/dL Unsaturated IBC (155-355) ug/dL Transferrin % Sat (20.0-50.0) % Ferritin (24-336) ng/mL 07/18/18 07/18/18 Range/Units 06:16 07:27 WBC (5.0-10.0) 10^3/uL RBC (4.6-6.2) 10^6/uL Hgb (14.0-18.0) g/dL Hct (40.0-54.0) % MCV (80-100) fL MCH (27.0-34.0) pg MCHC (33.0-35.0) g/dL Plt Count (150-450) 10^3/uL Sodium 137 (135-145) mmol/L Potassium 3.9 (3.6-5.0) mmol/L Chloride 109 (101-111) mmol/L Carbon Dioxide 18.0 L (21.0-31.0) mmol/L Anion Gap 13.9 BUN 40 H (7-18) mg/dL Creatinine 2.8 H (0.6-1.3) mg/dL Est Cr Clr Drug Dosing 30.78 mL/min Estimated GFR (MDRD) 24 Glucose 93 (74-105) mg/dL POC Glucose 89 (70-105) mg/dl Calcium 7.6 L (8.4-10.2) mg/dl Iron (50-150) ug/dL TIBC (261-478) ug/dL Unsaturated IBC (155-355) ug/dL Transferrin % Sat (20.0-50.0) % Ferritin (24-336) ng/mL Blaise Results Last 24 Hours: Microbiology 07/16/18 18:26 Aerobic Blood Culture - Preliminary Blood - Venous - Lab Draw Anaerobic Blood Culture - Preliminary NO GROWTH AFTER 1 DAY 07/16/18 15:25 Aerobic Blood Culture - Preliminary Blood - Venous NO GROWTH AFTER 1 DAY Anaerobic Blood Culture - Preliminary NO GROWTH AFTER 1 DAY Med Orders - Current: Current Medications Acetaminophen (Tylenol) 650 mg PO Q4H PRN PRN Reason: Pain Bisacodyl (Dulcolax) 5 mg PO DAILY PRN PRN Reason: Constipation Dextrose/Water (Dextrose 50% In Water) 25 ml IVPUSH ASDIRECTED PRN PRN Reason: Hypoglycemia Docusate Sodium (Colace) 100 mg PO BID PRN PRN Reason: Constipation Furosemide (Lasix) 80 mg IVPUSH BIDDIURETIC [facility]ANDY Stop: 07/19/18 08:01 Last Admin: 07/18/18 07:55 Dose: 80 mg Glucagon (Glucagen) 1 mg IM ONETIME PRN PRN Reason: Hypoglycemia Heparin Sodium (Porcine) (Heparin Sodium) 5,000 units SUBCUT Q8HR [facility] Last Admin: 07/18/18 05:51 Dose: 5,000 units Vancomycin HCl 1.5 gm/ Sodium (Chloride) 500 mls @ 333.333 mls/hr IV Q24H [facility] Last Admin: 07/17/18 20:20 Dose: 250 mls/hr Mineral Oil/White Petrolatum (Hydrocerin Crm) 0 gm TOP ASDIRECTED PRN PRN Reason: Dryness Last Admin: 07/18/18 10:07 Dose: 1 applic Ondansetron HCl (Zofran Odt) 4 mg PO Q6H PRN PRN Reason: nausea, able to take PO Ondansetron HCl (Zofran) 4 mg IVPUSH Q6H PRN PRN Reason: Nausea/Vomiting Promethazine HCl (Phenergan) 25 mg PO Q6H PRN PRN Reason: nausea, able to take PO Sodium Bicarbonate (Sodium Bicarbonate) 650 mg PO TID [facility] Last Admin: 07/18/18 08:01 Dose: 650 mg Sodium Chloride (Saline Flush) 10 ml FLUSH ASDIRECTED PRN PRN Reason: IV Use Last Admin: 07/17/18 22:34 Dose: 10 ml Vancomycin HCl (Pharmacy To Dose - Vancomycin) 1 dose .XX ASDIRECTED [facility] Discontinued Medications Furosemide (Lasix) 80 mg IVPUSH NOW ONE Stop: 07/16/18 17:54 Last Admin: 07/16/18 18:50 Dose: 80 mg Piperacillin Sod/Tazobactam (Sod 3.375 gm/ Sodium Chloride) 100 mls @ 200 mls/ hr IV Q6H [facility] Last Infusion: 07/17/18 18:42 Dose: Infused Vancomycin HCl 1.5 gm/ Sodium (Chloride) 500 mls @ 333.333 mls/hr IV Q24H [facility] Last Admin: 07/16/18 19:43 Dose: 250 mls/hr Insulin Glargine (Lantus) 30 unit SUBCUT BEDTIME [facility] Last Admin: 07/16/18 21:45 Dose: Not Given Insulin Human Lispro (Humalog) 10 unit SUBCUT TIDAC [facility] Last Admin: 07/17/18 13:08 Dose: Not Given - Exam General: Alert, Oriented, Cooperative, No Acute Distress HEENT: Pupils Equal, Pupils Reactive, Mucous Membr. Moist/[place] Neck: Supple, Trachea Midline Lungs: Normal Respiratory Effort, Crackles (Bilateral lower lung fileds) Cardiovascular: Regular Rate, Regular Rhythm GI/Abdominal Exam: Normal Bowel Sounds, Soft, Non-Tender Extremities: Other (3++ pitting edema of bilateral lower extremities up to the thighs, lymphedema wraps in place. ) Peripheral Pulses: 2+: Radial (L), Radial (R) Skin: Warm Neurological: No New Focal Deficit Psy/Mental Status: Alert, Normal Affect, Normal Mood - Problem List & Annotations (1) Sepsis due to cellulitis SNOMED Code(s): 71821387 Code(s): L03.90 - CELLULITIS, UNSPECIFIED; A41.9 - SEPSIS, UNSPECIFIED ORGANISM Status: Acute Current Visit: Yes (2) Anasarca associated with disorder of kidney SNOMED Code(s): 13279367202590 Code(s): N04.9 - NEPHROTIC SYNDROME WITH UNSPECIFIED MORPHOLOGIC CHANGES Status: Acute Current Visit: Yes (3) Acute renal failure SNOMED Code(s): 26040917 Code(s): N17.9 - ACUTE KIDNEY FAILURE, UNSPECIFIED Status: Acute Current Visit: Yes (4) Diabetes mellitus SNOMED Code(s): 69173795 Code(s): E11.9 - TYPE 2 DIABETES MELLITUS WITHOUT COMPLICATIONS Status: Acute Current Visit: Yes (5) Poor oral hygiene SNOMED Code(s): 040216224 Code(s): Z91.89 - OT PERSONAL RISK FACTORS, NOT ELSEWHERE CLASSIFIED Status: Acute Current Visit: Yes (6) Non-adherence to medical treatment SNOMED Code(s): 717538098 Code(s): Z91.19 - PATIENT'S NONCOMPLIANCE W OTH MEDICAL TREATMENT AND REGIMEN Status: Acute Current Visit: Yes (7) Metabolic acidosis SNOMED Code(s): 00953474 Code(s): E87.2 - ACIDOSIS Status: Acute Current Visit: Yes (8) Hypertension SNOMED Code(s): 76959915 Code(s): I10 - ESSENTIAL (PRIMARY) HYPERTENSION Status: Acute Current Visit: Yes (9) CHF (congestive heart failure) SNOMED Code(s): 36882988 Code(s): I50.9 - HEART FAILURE, UNSPECIFIED Status: Acute Current Visit: No Qualifiers: Heart failure type: unspecified Heart failure chronicity: unspecified Qualified Code(s): I50.9 - Heart failure, unspecified - Problem List Review Problem List Initiated/Reviewed/Updated: Yes - My Orders Last 24 Hours: My Active Orders 07/17/18 14:00 Furosemide [Lasix] 80 mg IVPUSH BIDDIURETIC Sodium Bicarbonate 650 mg PO TID 07/17/18 14:27 Communication Order [RC] 08,20 OT Evaluation and Treatment [CONS] Routine 07/17/18 14:28 Wound Care [RC] ,07/17/18 16:12 Communication Order [RC] ,07/17/18 16:14 Mineral Oil/Petrolatum,White [Hydrocerin Crm] See Dose Instructions TOP ASDIRECTED PRN 07/17/18 20:00 Vancomycin 1.5 gm Sodium Chloride 0.9% [Normal Saline] 500 ml IV Q24H 07/17/18 Dinner 2 Gram Sodium Diet [DIET] Consistent Carbohydrate Diet [DIET] 07/18/18 13:30 HEMOGLOBIN/HEMATOCRIT,HH [HEME] Routine 07/19/18 05:11 BASIC METABOLIC PANEL,BMP [CHEM] AM CBC W/O DIFF,HEMOGRAM [HEME] AM 07/20/18 19:30 VANCOMYCIN TROUGH [CHEM] Timed - Plan Plan:: #Sepsis due to cellulitis/probable osteomyelitis: patient with malodorus drainage from left foot and swelling of the right foot concerning for osteomyelitis but definitely cellulitic. - Follow up on blood cultures, probable CoNS - Received Clindamycin in the ED. - ESR and CRP elevated. - CT of the feet, without contrast due to renal function. - Continue Vancomycin - Discontinue Zosyn - MRI of bilateral feet with no osteomyelitis. #Probable acute CHF/anasarca: - Elevated BNP with anasarca. - 80 mg IV lasix BID - Strict I/Os - Daily standing weights. - Monitor renal function/electrolytes. - Echocardiogram #Acute renal failure: Cr of 2.7; Bicarb of 18. Last documented Cr was 0.8 in 2007. - Suspect Cardiorenal syndrome vs CKD component - IV diuresis - Monitor renal function - Renally dose all medications - Avoid nephrotoxins. #DM: uncertain type. - Check Hb A1c - Accuchecks AC and HS - SSI and hypoglycemia protocol. #Anemia: could be due to chronic disease or slow blood loss. Normocytic. - Follow up on Iron profile - Monitor CBC, transfuse for Hb <7 or if symptomatic. #metabolic acidosis: - Sodium bicarb replacement #Poor oral care - Outpatient follow up with dentist. DVT PPx: Heparin GI ppx: Diabetic diet
[2018-07-18] MEDS: Sodium Chloride 0.9% 10 ML Syringe FLUSH PRN ×2 (20:32→22:42)
[2018-07-18] MEDS: Vancomycin 1.5 GM in Sodium Chloride 0.9% 500 ML IV SCH (20:34)
[2018-07-19] MEDS: Heparin Sodium 5,000 Units/ML Vial SUBCUT SCH ×3 (05:04→21:25)
[2018-07-19 07:10] LABS: ANION GAP 13.9
[2018-07-19] MEDS: Sodium Bicarbonate 650 MG Tab PO SCH ×3 (08:34→21:23)
[2018-07-19] MEDS: Furosemide 40 MG/4 ML VIAL IVPUSH SCH ×2 (08:34→15:11)
[2018-07-19] MEDS: cefTRIAXone 2 GM in Sodium Chloride 0.9% 100 ML IV SCH (09:02)
--- NOTE | 2018-07-19 11:43 | PCM.PN ---
- General Info Date of Service: 07/19/18 Admission Dx/Problem (Free Text): Admission Diagnosis/Problem Admission Diagnosis/Problem Sepsis, anasarca, acute renal failure Subjective Update: No acute events overnight. Reports that he is doing okay. Voiding a lot. Denies chest pain, shortness of breath, fevers, chills, abd pain, n/v/d/c, no dysuria or hematuria, no foot pain. Has been elevating legs - Review of Systems General: Reports: No Symptoms HEENT: Reports: No Symptoms Pulmonary: Reports: No Symptoms Cardiovascular: Reports: No Symptoms Gastrointestinal: Reports: No Symptoms Genitourinary: Reports: Frequency (Due to diuretic) Musculoskeletal: Reports: No Symptoms (Persistent edema), Other Skin: Reports: No Symptoms Neurological: Reports: No Symptoms Psychiatric: Reports: No Symptoms - Patient Data Vitals - Most Recent: Last Vital Signs Temp 99.3 F 07/19/18 07:32 Pulse 82 07/19/18 07:32 Resp 20 07/19/18 07:32 BP 143/89 H 07/19/18 07:32 Pulse Ox 100 07/19/18 07:32 Weight - Most Recent: 261 lb 3.2 oz I&O - Last 24 Hours: Intake & Output 07/18/18 07/19/18 07/19/18 22:59 06:59 14:59 Intake Total 1810 580 655 Output Total 500 550 300 Balance 1310 30 355 Lab Results Last 24 Hours: Laboratory Results - last 24 hr 07/16/18 07/18/18 07/18/18 Range/Units 15:25 11:29 14:46 WBC (5.0-10.0) 10^3/uL RBC (4.6-6.2) 10^6/uL Hgb 7.2 L (14.0-18.0) g/dL Hct 23.0 L (40.0-54.0) % MCV (80-100) fL MCH (27.0-34.0) pg MCHC (33.0-35.0) g/dL Plt Count (150-450) 10^3/uL Sodium (135-145) mmol/L Potassium (3.6-5.0) mmol/L Chloride (101-111) mmol/L Carbon Dioxide (21.0-31.0) mmol/L Anion Gap BUN (7-18) mg/dL Creatinine (0.6-1.3) mg/dL Est Cr Clr Drug Dosing mL/min Estimated GFR (MDRD) Glucose (74-105) mg/dL POC Glucose 117 H (70-105) mg/dl Estimat Average Glucose 117 mg/dl Hemoglobin A1c 5.7 (4.4-6.3) % Calcium (8.4-10.2) mg/dl 07/18/18 07/18/18 07/19/18 Range/Units 16:52 20:47 06:00 WBC 6.7 (5.0-10.0) 10^3/uL RBC 2.63 L (4.6-6.2) 10^6/uL Hgb 7.3 L (14.0-18.0) g/dL Hct 23.6 L (40.0-54.0) % MCV 89.7 (80-100) fL MCH 27.8 (27.0-34.0) pg MCHC 30.9 L (33.0-35.0) g/dL Plt Count 234 (150-450) 10^3/uL Sodium (135-145) mmol/L Potassium (3.6-5.0) mmol/L Chloride (101-111) mmol/L Carbon Dioxide (21.0-31.0) mmol/L Anion Gap BUN (7-18) mg/dL Creatinine (0.6-1.3) mg/dL Est Cr Clr Drug Dosing mL/min Estimated GFR (MDRD) Glucose (74-105) mg/dL POC Glucose 125 H 148 H (70-105) mg/dl Estimat Average Glucose mg/dl Hemoglobin A1c (4.4-6.3) % Calcium (8.4-10.2) mg/dl 07/19/18 07/19/18 07/19/18 Range/Units 06:00 07:20 11:10 WBC (5.0-10.0) 10^3/uL RBC (4.6-6.2) 10^6/uL Hgb (14.0-18.0) g/dL Hct (40.0-54.0) % MCV (80-100) fL MCH (27.0-34.0) pg MCHC (33.0-35.0) g/dL Plt Count (150-450) 10^3/uL Sodium 137 (135-145) mmol/L Potassium 3.9 (3.6-5.0) mmol/L Chloride 108 (101-111) mmol/L Carbon Dioxide 19.0 L (21.0-31.0) mmol/L Anion Gap 13.9 BUN 41 H (7-18) mg/dL Creatinine 2.8 H (0.6-1.3) mg/dL Est Cr Clr Drug Dosing 30.78 mL/min Estimated GFR (MDRD) 24 Glucose 97 (74-105) mg/dL POC Glucose 100 114 H (70-105) mg/dl Estimat Average Glucose mg/dl Hemoglobin A1c (4.4-6.3) % Calcium 7.6 L (8.4-10.2) mg/dl Blaise Results Last 24 Hours: Microbiology 07/16/18 18:26 Aerobic Blood Culture - Final Blood - Venous - Lab Draw Staph Capitis Ss Capitis Anaerobic Blood Culture - Preliminary NO GROWTH AFTER 2 DAYS 07/16/18 15:25 Aerobic Blood Culture - Preliminary Blood - Venous NO GROWTH AFTER 2 DAYS Anaerobic Blood Culture - Preliminary NO GROWTH AFTER 2 DAYS Med Orders - Current: Current Medications Acetaminophen (Tylenol) 650 mg PO Q4H PRN PRN Reason: Pain Bisacodyl (Dulcolax) 5 mg PO DAILY PRN PRN Reason: Constipation Dextrose/Water (Dextrose 50% In Water) 25 ml IVPUSH ASDIRECTED PRN PRN Reason: Hypoglycemia Docusate Sodium (Colace) 100 mg PO BID PRN PRN Reason: Constipation Furosemide (Lasix) 80 mg IVPUSH BIDDIURETIC [facility] Glucagon (Glucagen) 1 mg IM ONETIME PRN PRN Reason: Hypoglycemia Heparin Sodium (Porcine) (Heparin Sodium) 5,000 units SUBCUT Q8HR [facility] Last Admin: 07/19/18 05:04 Dose: 5,000 units Ceftriaxone Sodium 2 gm/ (Sodium Chloride) 100 mls @ 200 mls/hr IV Q24H [facility] Last Admin: 07/19/18 09:02 Dose: 200 mls/hr Metolazone (Zaroxolyn) 2.5 mg PO BIDDIURETIC [facility] Mineral Oil/White Petrolatum (Hydrocerin Crm) 0 gm TOP ASDIRECTED PRN PRN Reason: Dryness Last Admin: 07/18/18 10:07 Dose: 1 applic Ondansetron HCl (Zofran Odt) 4 mg PO Q6H PRN PRN Reason: nausea, able to take PO Ondansetron HCl (Zofran) 4 mg IVPUSH Q6H PRN PRN Reason: Nausea/Vomiting Promethazine HCl (Phenergan) 25 mg PO Q6H PRN PRN Reason: nausea, able to take PO Sodium Bicarbonate (Sodium Bicarbonate) 650 mg PO TID [facility] Last Admin: 07/19/18 08:34 Dose: 650 mg Sodium Chloride (Saline Flush) 10 ml FLUSH ASDIRECTED PRN PRN Reason: IV Use Last Admin: 07/18/18 22:42 Dose: 10 ml Discontinued Medications Furosemide (Lasix) 80 mg IVPUSH NOW ONE Stop: 07/16/18 17:54 Last Admin: 07/16/18 18:50 Dose: 80 mg Furosemide (Lasix) 80 mg IVPUSH BIDDIURETIC [facility] Stop: 07/19/18 08:01 Last Admin: 07/19/18 08:34 Dose: 80 mg Piperacillin Sod/Tazobactam (Sod 3.375 gm/ Sodium Chloride) 100 mls @ 200 mls/ hr IV Q6H [facility] Last Infusion: 07/17/18 18:42 Dose: Infused Vancomycin HCl 1.5 gm/ Sodium (Chloride) 500 mls @ 333.333 mls/hr IV Q24H [facility] Last Admin: 07/16/18 19:43 Dose: 250 mls/hr Vancomycin HCl 1.5 gm/ Sodium (Chloride) 500 mls @ 333.333 mls/hr IV Q24H [facility] Last Admin: 07/18/18 20:34 Dose: 250 mls/hr Insulin Glargine (Lantus) 30 unit SUBCUT BEDTIME [facility] Last Admin: 07/16/18 21:45 Dose: Not Given Insulin Human Lispro (Humalog) 10 unit SUBCUT TIDAC [facility] Last Admin: 07/17/18 13:08 Dose: Not Given Vancomycin HCl (Pharmacy To Dose - Vancomycin) 1 dose .XX ASDIRECTED [facility] - Exam General: Alert, Oriented, Cooperative, No Acute Distress HEENT: Pupils Equal, Pupils Reactive, Mucous Membr. Moist/[place] Neck: Supple, Trachea Midline Lungs: Normal Respiratory Effort, Crackles (In bilateral lower lung chairez. ) Cardiovascular: Regular Rate, Regular Rhythm GI/Abdominal Exam: Normal Bowel Sounds, Soft, Non-Tender Extremities: Other (Bilateral lower extremity edema up to the groin, with chronic venous stasis changes, peeling scales in lower extremities, decreased drainage from left foot, small ulcer on the left lateral lower leg with healthy granulation tissue. No malodor) Peripheral Pulses: 2+: Radial (L), Radial (R) Skin: Warm, Dry Wound/Incisions: Healing Well Neurological: No New Focal Deficit Psy/Mental Status: Alert, Normal Affect, Normal Mood - Problem List & Annotations (1) Sepsis due to cellulitis SNOMED Code(s): 85672648 Code(s): L03.90 - CELLULITIS, UNSPECIFIED; A41.9 - SEPSIS, UNSPECIFIED ORGANISM Status: Acute Current Visit: Yes (2) Anasarca associated with disorder of kidney SNOMED Code(s): 33263127480001 Code(s): N04.9 - NEPHROTIC SYNDROME WITH UNSPECIFIED MORPHOLOGIC CHANGES Status: Acute Current Visit: Yes (3) Acute renal failure SNOMED Code(s): 86173615 Code(s): N17.9 - ACUTE KIDNEY FAILURE, UNSPECIFIED Status: Acute Current Visit: Yes (4) Diabetes mellitus SNOMED Code(s): 70043480 Code(s): E11.9 - TYPE 2 DIABETES MELLITUS WITHOUT COMPLICATIONS Status: Acute Current Visit: Yes (5) Poor oral hygiene SNOMED Code(s): 021992392 Code(s): Z91.89 - OT PERSONAL RISK FACTORS, NOT ELSEWHERE CLASSIFIED Status: Acute Current Visit: Yes (6) Non-adherence to medical treatment SNOMED Code(s): 367779466 Code(s): Z91.19 - PATIENT'S NONCOMPLIANCE W OTH MEDICAL TREATMENT AND REGIMEN Status: Acute Current Visit: Yes (7) Metabolic acidosis SNOMED Code(s): 14883042 Code(s): E87.2 - ACIDOSIS Status: Acute Current Visit: Yes (8) Hypertension SNOMED Code(s): 88286700 Code(s): I10 - ESSENTIAL (PRIMARY) HYPERTENSION Status: Acute Current Visit: Yes (9) CHF (congestive heart failure) SNOMED Code(s): 17200744 Code(s): I50.9 - HEART FAILURE, UNSPECIFIED Status: Acute Current Visit: No Qualifiers: Heart failure type: unspecified Heart failure chronicity: unspecified Qualified Code(s): I50.9 - Heart failure, unspecified - Problem List Review Problem List Initiated/Reviewed/Updated: Yes - My Orders Last 24 Hours: My Active Orders 07/19/18 06:01 Blood Culture x2 Reflex Set [OM.PC] Stat 07/19/18 06:05 CULTURE BLOOD [BC] Stat 07/19/18 06:10 CULTURE BLOOD [BC] Stat 07/19/18 09:00 cefTRIAXone [Rocephin] 2 gm Sodium Chloride 0.9% [Normal Saline] 100 ml IV Q24H 07/19/18 14:00 Furosemide [Lasix] 80 mg IVPUSH BIDDIURETIC metOLazone [Zaroxolyn] 2.5 mg PO BIDDIURETIC 07/20/18 19:30 VANCOMYCIN TROUGH [CHEM] Timed - Plan Plan:: #Sepsis due to cellulitis/probable osteomyelitis: Improved. BCx positive for Staph capitis in 1/2 bottles from 07/16. Patient presented with malodorus drainage from left foot and swelling of the right foot concerning for osteomyelitis but definitely cellulitic. - Follow up on blood cultures, probable CoNS - Received Clindamycin in the ED. - ESR and CRP elevated. - Start Rocephin - Discontinue Vancomycin - Discontinue Zosyn - MRI of bilateral feet with no osteomyelitis. #Probable acute CHF/anasarca: - Elevated BNP with anasarca. - 80 mg IV lasix BID - Add metolazone 2.5 mg BID. - Strict I/Os - Daily standing weights. - Monitor renal function/electrolytes. - Echocardiogram report pending #Acute renal failure: Cr of 2.7; Bicarb of 18. Last documented Cr was 0.8 in 2007. - Suspect Cardiorenal syndrome vs CKD component - IV diuresis - Monitor renal function - Renally dose all medications - Avoid nephrotoxins. #DM: uncertain type. - Hb A1c - Accuchecks AC and HS - SSI and hypoglycemia protocol. #Anemia: could be due to chronic disease or slow blood loss. Normocytic. - Follow up on Iron profile - Monitor CBC, transfuse for Hb <7 or if symptomatic. #metabolic acidosis: Improving. Bicarb was 15 on presentation. - Sodium bicarb replacement #Poor oral care - Outpatient follow up with dentist. DVT PPx: Heparin GI ppx: Diabetic diet
[2018-07-19] MEDS: Mineral Oil/White Petrolatum Crm 113 GM Jar TOP PRN (13:48)
[2018-07-19] MEDS: Metolazone 2.5 MG Tab PO SCH (13:49)
[2018-07-19] MEDS ORDERED: Metolazone 2.5 MG Tab PO SCH (14:00)
[2018-07-19] MEDS: Sodium Chloride 0.9% 10 ML Syringe FLUSH PRN (21:31)
[2018-07-20] MEDS: Heparin Sodium 5,000 Units/ML Vial SUBCUT SCH ×3 (05:47→21:30)
[2018-07-20 07:03] LABS: ANION GAP 13.2
[2018-07-20] MEDS: Metolazone 2.5 MG Tab PO SCH ×2 (08:12→14:09)
[2018-07-20] MEDS ORDERED: cefTRIAXone 2 GM in Sodium Chloride 0.9% 100 ML IV SCH (09:00)
[2018-07-20] MEDS: Sodium Chloride 0.9% 10 ML Syringe FLUSH PRN ×2 (09:57→16:19)
[2018-07-20] MEDS: Furosemide 40 MG/4 ML VIAL IVPUSH SCH ×2 (09:57→16:18)
[2018-07-20] MEDS: Sodium Bicarbonate 650 MG Tab PO SCH ×3 (09:57→21:29)
[2018-07-20] MEDS: cefTRIAXone 2 GM in Sodium Chloride 0.9% 100 ML IV SCH ×2 (10:02→10:41)
--- NOTE | 2018-07-20 12:42 | PCM.PN ---
- General Info Date of Service: 07/20/18 Admission Dx/Problem (Free Text): Admission Diagnosis/Problem Admission Diagnosis/Problem Sepsis, anasarca, acute renal failure Subjective Update: No acute events overnight. Reports that he is doing okay. Voided a lot more last night. Denies chest pain, shortness of breath, fevers, chills, abd pain, n/ v/d/c, no dysuria or hematuria, no foot pain. Has been elevating legs - Review of Systems General: Reports: No Symptoms HEENT: Reports: No Symptoms Pulmonary: Reports: No Symptoms Cardiovascular: Reports: No Symptoms Gastrointestinal: Reports: No Symptoms Genitourinary: Reports: No Symptoms Musculoskeletal: Reports: Other (Edema of the legs are improved. ) Skin: Reports: Other (Peeling scales from chronic venous stasis changes ) Neurological: Reports: No Symptoms Psychiatric: Reports: No Symptoms - Patient Data Vitals - Most Recent: Last Vital Signs Temp 98.6 F 07/20/18 11:45 Pulse 74 07/20/18 11:45 Resp 20 07/20/18 11:45 BP 131/72 07/20/18 11:45 Pulse Ox 100 07/20/18 11:45 Weight - Most Recent: 256 lb 3.2 oz I&O - Last 24 Hours: Intake & Output 07/19/18 07/20/18 07/20/18 22:59 06:59 14:59 Intake Total 525 600 565 Output Total 2220 950 Balance -1695 -350 565 Lab Results Last 24 Hours: Laboratory Results - last 24 hr 07/19/18 07/20/18 07/20/18 Range/Units 16:39 06:15 06:15 WBC 6.7 (5.0-10.0) 10^3/uL RBC 2.75 L (4.6-6.2) 10^6/uL Hgb 7.6 L (14.0-18.0) g/dL Hct 24.5 L (40.0-54.0) % MCV 89.1 (80-100) fL MCH 27.6 (27.0-34.0) pg MCHC 31.0 L (33.0-35.0) g/dL Plt Count 245 (150-450) 10^3/uL Sodium 137 (135-145) mmol/L Potassium 4.2 (3.6-5.0) mmol/L Chloride 107 (101-111) mmol/L Carbon Dioxide 21.0 (21.0-31.0) mmol/L Anion Gap 13.2 BUN 38 H (7-18) mg/dL Creatinine 2.7 H (0.6-1.3) mg/dL Est Cr Clr Drug Dosing 31.92 mL/min Estimated GFR (MDRD) 25 Glucose 94 (74-105) mg/dL POC Glucose 124 H (70-105) mg/dl Calcium 7.8 L (8.4-10.2) mg/dl 07/20/18 07/20/18 Range/Units 07:33 11:09 WBC (5.0-10.0) 10^3/uL RBC (4.6-6.2) 10^6/uL Hgb (14.0-18.0) g/dL Hct (40.0-54.0) % MCV (80-100) fL MCH (27.0-34.0) pg MCHC (33.0-35.0) g/dL Plt Count (150-450) 10^3/uL Sodium (135-145) mmol/L Potassium (3.6-5.0) mmol/L Chloride (101-111) mmol/L Carbon Dioxide (21.0-31.0) mmol/L Anion Gap BUN (7-18) mg/dL Creatinine (0.6-1.3) mg/dL Est Cr Clr Drug Dosing mL/min Estimated GFR (MDRD) Glucose (74-105) mg/dL POC Glucose 99 105 (70-105) mg/dl Calcium (8.4-10.2) mg/dl Blaise Results Last 24 Hours: Microbiology 07/19/18 06:10 Aerobic Blood Culture - Preliminary Blood - Venous - Lab Draw NO GROWTH AFTER 1 DAY Anaerobic Blood Culture - Preliminary NO GROWTH AFTER 1 DAY 07/19/18 06:05 Aerobic Blood Culture - Preliminary Blood - Venous NO GROWTH AFTER 1 DAY Anaerobic Blood Culture - Preliminary NO GROWTH AFTER 1 DAY 07/16/18 18:26 Aerobic Blood Culture - Final Blood - Venous - Lab Draw Staph Capitis Ss Capitis Anaerobic Blood Culture - Preliminary NO GROWTH AFTER 3 DAYS 07/16/18 15:25 Aerobic Blood Culture - Preliminary Blood - Venous NO GROWTH AFTER 3 DAYS Anaerobic Blood Culture - Preliminary NO GROWTH AFTER 3 DAYS Med Orders - Current: Current Medications Acetaminophen (Tylenol) 650 mg PO Q4H PRN PRN Reason: Pain Bisacodyl (Dulcolax) 5 mg PO DAILY PRN PRN Reason: Constipation Dextrose/Water (Dextrose 50% In Water) 25 ml IVPUSH ASDIRECTED PRN PRN Reason: Hypoglycemia Docusate Sodium (Colace) 100 mg PO BID PRN PRN Reason: Constipation Furosemide (Lasix) 80 mg IVPUSH BIDDIURETIC [facility] Last Admin: 07/20/18 09:57 Dose: 80 mg Glucagon (Glucagen) 1 mg IM ONETIME PRN PRN Reason: Hypoglycemia Heparin Sodium (Porcine) (Heparin Sodium) 5,000 units SUBCUT Q8HR [facility] Last Admin: 07/20/18 05:47 Dose: 5,000 units Ceftriaxone Sodium 2 gm/ (Sodium Chloride) 100 mls @ 200 mls/hr IV Q24H [facility] Last Admin: 07/20/18 10:02 Dose: 200 mls/hr Metolazone (Zaroxolyn) 2.5 mg PO BID@0700,1300 [facility] Last Admin: 07/20/18 08:12 Dose: 2.5 mg Mineral Oil/White Petrolatum (Hydrocerin Crm) 0 gm TOP ASDIRECTED PRN PRN Reason: Dryness Last Admin: 07/19/18 13:48 Dose: 1 applic Ondansetron HCl (Zofran Odt) 4 mg PO Q6H PRN PRN Reason: nausea, able to take PO Ondansetron HCl (Zofran) 4 mg IVPUSH Q6H PRN PRN Reason: Nausea/Vomiting Promethazine HCl (Phenergan) 25 mg PO Q6H PRN PRN Reason: nausea, able to take PO Sodium Bicarbonate (Sodium Bicarbonate) 650 mg PO TID [facility] Last Admin: 07/20/18 09:57 Dose: 650 mg Sodium Chloride (Saline Flush) 10 ml FLUSH ASDIRECTED PRN PRN Reason: IV Use Last Admin: 07/20/18 09:57 Dose: 10 ml Discontinued Medications Furosemide (Lasix) 80 mg IVPUSH NOW ONE Stop: 07/16/18 17:54 Last Admin: 07/16/18 18:50 Dose: 80 mg Furosemide (Lasix) 80 mg IVPUSH BIDDIURETIC [facility] Stop: 07/19/18 08:01 Last Admin: 07/19/18 08:34 Dose: 80 mg Piperacillin Sod/Tazobactam (Sod 3.375 gm/ Sodium Chloride) 100 mls @ 200 mls/ hr IV Q6H [facility] Last Infusion: 07/17/18 18:42 Dose: Infused Vancomycin HCl 1.5 gm/ Sodium (Chloride) 500 mls @ 333.333 mls/hr IV Q24H [facility] Last Admin: 07/16/18 19:43 Dose: 250 mls/hr Vancomycin HCl 1.5 gm/ Sodium (Chloride) 500 mls @ 333.333 mls/hr IV Q24H [facility] Last Admin: 07/18/18 20:34 Dose: 250 mls/hr Ceftriaxone Sodium 2 gm/ (Sodium Chloride) 100 mls @ 200 mls/hr IV Q24H [facility] Last Admin: 07/20/18 10:41 Dose: Not Given Insulin Glargine (Lantus) 30 unit SUBCUT BEDTIME [facility] Last Admin: 07/16/18 21:45 Dose: Not Given Insulin Human Lispro (Humalog) 10 unit SUBCUT TIDAC [facility] Last Admin: 07/17/18 13:08 Dose: Not Given Metolazone (Zaroxolyn) 2.5 mg PO BIDDIURETIC [facility] Last Admin: 07/19/18 13:49 Dose: 2.5 mg Vancomycin HCl (Pharmacy To Dose - Vancomycin) 1 dose .XX ASDIRECTED [facility] - Exam General: Alert, Oriented, Cooperative, No Acute Distress HEENT: Pupils Equal, Pupils Reactive, Mucous Membr. Moist/[place] Neck: Supple, Trachea Midline Lungs: Crackles (Bibasilar) Cardiovascular: Regular Rate, Regular Rhythm GI/Abdominal Exam: Normal Bowel Sounds, Soft, Non-Tender Extremities: Other (Bilateral lower extremities with chronic venous stasis changes. Improved ulceration of left foot and left lower leg. Charcot deformity of the right foot/ankle) Peripheral Pulses: 2+: Radial (L), Radial (R), Dorsalis Pedis (L), Dorsalis Pedis (R) Skin: Other (Peeling skin from chronic venous stasis changes. ) Wound/Incisions: Healing Well Neurological: No New Focal Deficit Psy/Mental Status: Alert, Normal Affect - Problem List & Annotations (1) Sepsis due to cellulitis SNOMED Code(s): 25473638 Code(s): L03.90 - CELLULITIS, UNSPECIFIED; A41.9 - SEPSIS, UNSPECIFIED ORGANISM Status: Acute Current Visit: Yes (2) Anasarca associated with disorder of kidney SNOMED Code(s): 42163818912657 Code(s): N04.9 - NEPHROTIC SYNDROME WITH UNSPECIFIED MORPHOLOGIC CHANGES Status: Acute Current Visit: Yes (3) Acute renal failure SNOMED Code(s): 25773495 Code(s): N17.9 - ACUTE KIDNEY FAILURE, UNSPECIFIED Status: Acute Current Visit: Yes (4) Diabetes mellitus SNOMED Code(s): 19220751 Code(s): E11.9 - TYPE 2 DIABETES MELLITUS WITHOUT COMPLICATIONS Status: Acute Current Visit: Yes (5) Poor oral hygiene SNOMED Code(s): 562995416 Code(s): Z91.89 - OTH PERSONAL RISK FACTORS, NOT ELSEWHERE CLASSIFIED Status: Acute Current Visit: Yes (6) Non-adherence to medical treatment SNOMED Code(s): 899251172 Code(s): Z91.19 - PATIENT'S NONCOMPLIANCE W OTH MEDICAL TREATMENT AND REGIMEN Status: Acute Current Visit: Yes (7) Metabolic acidosis SNOMED Code(s): 71404427 Code(s): E87.2 - ACIDOSIS Status: Acute Current Visit: Yes (8) Hypertension SNOMED Code(s): 71550432 Code(s): I10 - ESSENTIAL (PRIMARY) HYPERTENSION Status: Acute Current Visit: Yes (9) CHF (congestive heart failure) SNOMED Code(s): 05614762 Code(s): I50.9 - HEART FAILURE, UNSPECIFIED Status: Acute Current Visit: No Qualifiers: Heart failure type: unspecified Heart failure chronicity: unspecified Qualified Code(s): I50.9 - Heart failure, unspecified - Problem List Review Problem List Initiated/Reviewed/Updated: Yes - My Orders Last 24 Hours: My Active Orders 07/19/18 13:00 metOLazone [Zaroxolyn] 2.5 mg PO BID@0700,1300 07/19/18 14:00 Furosemide [Lasix] 80 mg IVPUSH BIDDIURETIC 07/20/18 07:00 Blood Glucose Check, Bedside [RC] BIDMEALS 07/20/18 10:00 cefTRIAXone [Rocephin] 2 gm Sodium Chloride 0.9% [Normal Saline] 100 ml IV Q24H 07/20/18 19:30 VANCOMYCIN TROUGH [CHEM] Timed - Plan Plan:: #Sepsis due to cellulitis/probable osteomyelitis: Improved. BCx positive for Staph capitis in 1/2 bottles from 07/16. Patient presented with malodorus drainage from left foot and swelling of the right foot concerning for osteomyelitis but definitely cellulitic. Was treated with Vancomycin and Zosyn, discontinued after cultures came back positive for Staph capitis in 1/2 culture bottles. - Follow up on blood cultures, probable CoNS - Received Clindamycin in the ED. - ESR and CRP elevated. - Continue Rocephin - MRI of bilateral feet with no osteomyelitis. #Probable acute CHF/anasarca: - Elevated BNP with anasarca. - Continue 80 mg IV lasix BID - Continue metolazone 2.5 mg BID. - Strict I/Os - Daily standing weights. - Monitor renal function/electrolytes. - Echocardiogram report pending #Acute renal failure: Cr of 2.7; Bicarb of 18. Last documented Cr was 0.8 in 2007. - Suspect Cardiorenal syndrome vs CKD component - IV diuresis - Monitor renal function - Renally dose all medications - Avoid nephrotoxins. #DM: uncertain type. - Hb A1c - Accuchecks AC and HS - SSI and hypoglycemia protocol. #Anemia: could be due to chronic disease with possible component of slow blood loss. Normocytic. - Monitor CBC, transfuse for Hb <7 or if symptomatic. #metabolic acidosis: Improving. Bicarb was 15 on presentation. - Sodium bicarb replacement #Poor oral care - Outpatient follow up with dentist. DVT PPx: Heparin GI ppx: Diabetic diet
[2018-07-21] MEDS: Heparin Sodium 5,000 Units/ML Vial SUBCUT SCH ×2 (06:24→14:27)
[2018-07-21] MEDS: Metolazone 2.5 MG Tab PO SCH ×2 (06:26→13:02)
[2018-07-21] MEDS: Sodium Bicarbonate 650 MG Tab PO SCH ×2 (08:16→14:27)
[2018-07-21] MEDS: Furosemide 40 MG/4 ML VIAL IVPUSH SCH (09:31)
[2018-07-21] MEDS: Furosemide 20 MG Tab PO SCH ×2 (09:55→14:27)
[2018-07-21] MEDS: cefTRIAXone 2 GM in Sodium Chloride 0.9% 100 ML IV SCH (11:06)
--- NOTE | 2018-07-21 11:21 | PCM.DCSUM1 ---
Discharge Summary - Hospital Course Free Text/Narrative:: Mr. 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 He was started on vancomycin and zosyn. ESR and CRP were elevated. XR of the feet was negative for osteomyelitis. CT was obtained which was also negative. MRI was obtained which also came back negative. OT applied lymphedema wraps. Cellulitis improved. Blood cultures were positive for Staph Capitis in 1/ 2 culture bottles. He was treated with IV ceftriaxone and switched to Vantin prior to discharge. Patient was started on IV lasix 80 mg BID. Metolazone was added to medications with significant diuresis. Echocardiogram came back with report below. He was maintained on Lasix 60 mg PO AM and afternoon, Metolazone 2.5 mg AM and Afternoon, coreg 3.125 mg PO BID, lisinopril 2.5 mg PO daily. Hb on presentation was 8.0. Stay above 7 during hospitalization without any symptoms. PCP to arrange follow up with cardiology for CHF management and outpatient stress testing, nephrology for management of renal disease, GI for colonoscopy/ EGD for anemia, ophthalmology for diabetic eye exam, and podiatry for compressive foot exam. 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 #Acute vs Chronic renal failure: Cr of 2.7; Bicarb of 18. Last documented Cr was 0.8 in 2007. #DM: uncertain type. #Anemia: #Pulmonary Hypertension #Ascites #Obesity Echocardiogram Report Interpretation Summary There is borderline concentric left ventricular hypertrophy. Left ventricular systolic function is mild to moderately reduced. Ejection Fraction = 40-45%. There is Grade II diastolic dysfunction. There is mild to moderate global hypokinesis of the left ventricle. The right ventricular systolic function is moderately reduced. There is mild mitral regurgitation. There is mild tricuspid regurgitation. There is mild pulmonary hypertension. Right ventricular systolic pressure is 45 mmHg. There is no pericardial effusion. Ascites is noted. HPI Initial Comments: Mr. 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 He reports that his sister has a visiting nurse who came to attend to the patient' s sister today. Nurse was asked to see him due to discharge from his left foot. He states that the nurse told him to come to the ED. He reports that his foot has been having discharge and malodor for a few days. Also states that he noticed that there is "fluid in my legs" today. He denies foot pain, fevers, chills, chest pain, nausea, abdominal pain, diarrhea, constipation, dysuria, hematuria, or any other symptoms. He reports that he is on insulin but does not recall the amount he is supposed to take. Also reports that he takes a medication for blood pressure. On chart review, patient was seen in [facility] in 2007 for necrotic right second toe. At that time he was on Lisinopril 10 mg PO daily. He was also on novolog 5 units TID and lantus 1 unit at bedtime. Diagnosis: Stroke: No - Discharge Data Discharge Date: 07/21/18 Discharge Disposition: Home, Self-Care 01 Condition: Good - Discharge Diagnosis/Problem(s) (1) Sepsis due to cellulitis SNOMED Code(s): 51639818 ICD Code: L03.90 - CELLULITIS, UNSPECIFIED; A41.9 - SEPSIS, UNSPECIFIED ORGANISM Status: Acute Current Visit: Yes (2) Anasarca associated with disorder of kidney SNOMED Code(s): 65416323747618 ICD Code: N04.9 - NEPHROTIC SYNDROME WITH UNSPECIFIED MORPHOLOGIC CHANGES Status: Acute Current Visit: Yes (3) Acute renal failure SNOMED Code(s): 70645789 ICD Code: N17.9 - ACUTE KIDNEY FAILURE, UNSPECIFIED Status: Acute Current Visit: Yes (4) Diabetes mellitus SNOMED Code(s): 25984449 ICD Code: E11.9 - TYPE 2 DIABETES MELLITUS WITHOUT COMPLICATIONS Status: Acute Current Visit: Yes Qualifiers: Diabetes mellitus complication status: with kidney complications Diabetes mellitus complication detail: with chronic kidney disease (5) Poor oral hygiene SNOMED Code(s): 704778420 ICD Code: Z91.89 - OTH PERSONAL RISK FACTORS, NOT ELSEWHERE CLASSIFIED Status: Acute Current Visit: Yes (6) Non-adherence to medical treatment SNOMED Code(s): 037715133 ICD Code: Z91.19 - PATIENT'S NONCOMPLIANCE W OTH MEDICAL TREATMENT AND REGIMEN Status: Acute Current Visit: Yes (7) Metabolic acidosis SNOMED Code(s): 02033098 ICD Code: E87.2 - ACIDOSIS Status: Acute Current Visit: Yes (8) Hypertension SNOMED Code(s): 57815932 ICD Code: I10 - ESSENTIAL (PRIMARY) HYPERTENSION Status: Acute Current Visit: Yes (9) CHF (congestive heart failure) SNOMED Code(s): 31329728 ICD Code: I50.9 - HEART FAILURE, UNSPECIFIED Status: Acute Current Visit : No Qualifiers: Heart failure type: unspecified Heart failure chronicity: unspecified Qualified Code(s): I50.9 - Heart failure, unspecified - Patient Summary/Data Consults: Consultations 07/16/18 18:40 Consult to Television Station Manager [CONS] Routine 07/17/18 14:27 OT Evaluation and Treatment [CONS] Routine - Patient Instructions Diet: Low Sodium, Diabetic Diet - Discharge Plan Prescriptions/Med Rec: Carvedilol [Coreg] 3.125 mg PO BID #60 tab Cefpodoxime [Vantin] 200 mg PO BID #16 tablet Furosemide [Lasix] 60 mg PO BIDDIURETIC 30 Days #180 tablet Lisinopril 2.5 mg PO DAILY 1 Days #30 tablet metOLazone [Zaroxolyn] 2.5 mg PO BID@0700,1300 #60 tablet Home Medications: Home Meds Carvedilol [Coreg] 3.125 mg PO BID #60 tab 07/21/18 [Rx] Cefpodoxime [Vantin] 200 mg PO BID #16 tablet 07/21/18 [Rx] Furosemide [Lasix] 60 mg PO BIDDIURETIC 30 Days #180 tablet 07/21/18 [Rx] Lisinopril 2.5 mg PO DAILY 1 Days #30 tablet 07/21/18 [Rx] metOLazone [Zaroxolyn] 2.5 mg PO BID@0700,1300 #60 tablet 07/21/18 [Rx] Patient Handouts: Furosemide tablets, Carvedilol tablets, Cefpodoxime tablets, Sepsis, Adult, Cellulitis, Adult, [id number], Lisinopril tablets, Heart Failure, [id number], Metolazone tablets - Discharge Summary/Plan Comment DC Time >30 min.: Yes - General Info Date of Service: 07/21/18 Admission Dx/Problem (Free Text: Admission Diagnosis/Problem Admission Diagnosis/Problem Sepsis, anasarca, acute renal failure Subjective Update: No acute events overnight. Reports that he is doing okay. Continues to have adequate urine output. Denies chest pain, shortness of breath, fevers, chills, abdominal pain, n/v/d/c, no dysuria or hematuria, no foot pain. Has been elevating legs - Review of Systems General: Reports: No Symptoms HEENT: Reports: No Symptoms Pulmonary: Reports: No Symptoms Cardiovascular: Reports: No Symptoms Gastrointestinal: Reports: No Symptoms Genitourinary: Reports: No Symptoms Musculoskeletal: Reports: No Symptoms Skin: Reports: No Symptoms Neurological: Reports: No Symptoms Psychiatric: Reports: No Symptoms - Patient Data Vitals - Most Recent: Last Vital Signs Temp 98.5 F 07/21/18 07:38 Pulse 80 07/21/18 07:38 Resp 20 07/21/18 07:38 BP 139/74 07/21/18 07:38 Pulse Ox 99 07/21/18 07:38 Weight - Most Recent: 251 lb 3.2 oz I&O - Last 24 hours: Intake & Output 07/20/18 07/21/18 07/21/18 22:59 06:59 14:59 Intake Total 560 400 Output Total 154 084 7594 Balance 260 -550 -1600 Lab Results - Last 24 hrs: Laboratory Results - last 24 hr 07/20/18 07/21/18 07/21/18 Range/Units 16:36 06:14 06:14 Hgb 7.2 L (14.0-18.0) g/dL Hct 22.9 L (40.0-54.0) % Sodium 136 (135-145) mmol/L Potassium 4.0 (3.6-5.0) mmol/L Chloride 104 (101-111) mmol/L Carbon Dioxide 21.0 (21.0-31.0) mmol/L Anion Gap 15.0 BUN 38 H (7-18) mg/dL Creatinine 2.7 H (0.6-1.3) mg/dL Est Cr Clr Drug Dosing 31.92 mL/min Estimated GFR (MDRD) 25 Glucose 92 (74-105) mg/dL POC Glucose 127 H (70-105) mg/dl Calcium 7.5 L (8.4-10.2) mg/dl 07/21/18 Range/Units 07:40 Hgb (14.0-18.0) g/dL Hct (40.0-54.0) % Sodium (135-145) mmol/L Potassium (3.6-5.0) mmol/L Chloride (101-111) mmol/L Carbon Dioxide (21.0-31.0) mmol/L Anion Gap BUN (7-18) mg/dL Creatinine (0.6-1.3) mg/dL Est Cr Clr Drug Dosing mL/min Estimated GFR (MDRD) Glucose (74-105) mg/dL POC Glucose 93 (70-105) mg/dl Calcium (8.4-10.2) mg/dl JON Results - Last 24 hrs: Microbiology 07/19/18 06:10 Aerobic Blood Culture - Preliminary Blood - Venous - Lab Draw NO GROWTH AFTER 2 DAYS Anaerobic Blood Culture - Preliminary NO GROWTH AFTER 2 DAYS 07/19/18 06:05 Aerobic Blood Culture - Preliminary Blood - Venous NO GROWTH AFTER 2 DAYS Anaerobic Blood Culture - Preliminary NO GROWTH AFTER 2 DAYS 07/16/18 18:26 Aerobic Blood Culture - Final Blood - Venous - Lab Draw Staph Capitis Ss Capitis Anaerobic Blood Culture - Preliminary NO GROWTH AFTER 4 DAYS 07/16/18 15:25 Aerobic Blood Culture - Preliminary Blood - Venous NO GROWTH AFTER 4 DAYS Anaerobic Blood Culture - Preliminary NO GROWTH AFTER 4 DAYS Med Orders - Current: Current Medications Acetaminophen (Tylenol) 650 mg PO Q4H PRN PRN Reason: Pain Bisacodyl (Dulcolax) 5 mg PO DAILY PRN PRN Reason: Constipation Dextrose/Water (Dextrose 50% In Water) 25 ml IVPUSH ASDIRECTED PRN PRN Reason: Hypoglycemia Docusate Sodium (Colace) 100 mg PO BID PRN PRN Reason: Constipation Furosemide (Lasix) 60 mg PO BIDDIURETIC [facility] Last Admin: 07/21/18 09:55 Dose: 60 mg Glucagon (Glucagen) 1 mg IM ONETIME PRN PRN Reason: Hypoglycemia Heparin Sodium (Porcine) (Heparin Sodium) 5,000 units SUBCUT Q8HR [facility] Last Admin: 07/21/18 06:24 Dose: 5,000 units Ceftriaxone Sodium 2 gm/ (Sodium Chloride) 100 mls @ 200 mls/hr IV Q24H [facility] Last Admin: 07/21/18 11:06 Dose: 100 mls/hr Metolazone (Zaroxolyn) 2.5 mg PO BID@0700,1300 [facility] Last Admin: 07/21/18 06:26 Dose: 2.5 mg Mineral Oil/White Petrolatum (Hydrocerin Crm) 0 gm TOP ASDIRECTED PRN PRN Reason: Dryness Last Admin: 07/19/18 13:48 Dose: 1 applic Ondansetron HCl (Zofran Odt) 4 mg PO Q6H PRN PRN Reason: nausea, able to take PO Ondansetron HCl (Zofran) 4 mg IVPUSH Q6H PRN PRN Reason: Nausea/Vomiting Promethazine HCl (Phenergan) 25 mg PO Q6H PRN PRN Reason: nausea, able to take PO Sodium Bicarbonate (Sodium Bicarbonate) 650 mg PO TID [facility] Last Admin: 07/21/18 08:16 Dose: 650 mg Sodium Chloride (Saline Flush) 10 ml FLUSH ASDIRECTED PRN PRN Reason: IV Use Last Admin: 07/20/18 16:19 Dose: 10 ml Discontinued Medications Furosemide (Lasix) 80 mg IVPUSH NOW ONE Stop: 07/16/18 17:54 Last Admin: 07/16/18 18:50 Dose: 80 mg Furosemide (Lasix) 80 mg IVPUSH BIDDIURETIC [facility] Stop: 07/19/18 08:01 Last Admin: 07/19/18 08:34 Dose: 80 mg Furosemide (Lasix) 80 mg IVPUSH BIDDIURETIC [facility] Last Admin: 07/21/18 09:31 Dose: Not Given Piperacillin Sod/Tazobactam (Sod 3.375 gm/ Sodium Chloride) 100 mls @ 200 mls/ hr IV Q6H [facility] Last Infusion: 07/17/18 18:42 Dose: Infused Vancomycin HCl 1.5 gm/ Sodium (Chloride) 500 mls @ 333.333 mls/hr IV Q24H [facility] Last Admin: 07/16/18 19:43 Dose: 250 mls/hr Vancomycin HCl 1.5 gm/ Sodium (Chloride) 500 mls @ 333.333 mls/hr IV Q24H [facility] Last Admin: 07/18/18 20:34 Dose: 250 mls/hr Ceftriaxone Sodium 2 gm/ (Sodium Chloride) 100 mls @ 200 mls/hr IV Q24H [facility] Last Admin: 07/20/18 10:41 Dose: Not Given Insulin Glargine (Lantus) 30 unit SUBCUT BEDTIME [facility] Last Admin: 07/16/18 21:45 Dose: Not Given Insulin Human Lispro (Humalog) 10 unit SUBCUT TIDAC [facility] Last Admin: 07/17/18 13:08 Dose: Not Given Metolazone (Zaroxolyn) 2.5 mg PO BIDDIURETIC [facility] Last Admin: 07/19/18 13:49 Dose: 2.5 mg Vancomycin HCl (Pharmacy To Dose - Vancomycin) 1 dose .XX ASDIRECTED [facility] - Exam General: Reports: Alert, Oriented, Cooperative, No Acute Distress HEENT: Reports: Pupils Equal, Pupils Reactive, Mucous Membr. Moist/[place] Neck: Reports: Supple Lungs: Reports: Clear to Auscultation, Normal Respiratory Effort, Crackles ( Bibasilar) Cardiovascular: Reports: Regular Rate, Regular Rhythm GI/Abdominal Exam: Normal Bowel Sounds, Soft, Non-Tender, Distended, Other ( Positive fluid wave with shifting dullness. ) Extremities: Other (Improved edema of lower extremities and thighs. Improved cellulitis of left lower extremity, charcot deformity of right foot/ankle) Skin: Reports: Warm, Dry, Intact Wound/Incisions: Reports: Healing Well Neurological: Reports: No New Focal Deficit Psy/Mental Status: Reports: Alert, Normal Affect, Normal Mood
== END 2018-07-21 14:10 | disposition home or self-care (01) | DRG 871 ==
LOC: DL.ED 14:49 → DL.MS 17:00 → UNDOADMIN 17:00 → DL.MS 17:45
PROVIDERS: ADMIT Internal Medicine; ATTEND Internal Medicine
PROC: F08 Physical Rehabilitation and Diagnostic Audiology, Rehabilitation, Activities of Daily Living Treatment (ICD-10-PCS; principal; 2018-07-17)
DX: A41.9 Sepsis, unspecified organism (principal); I50.43 Acute on chronic combined systolic (congestive) and diastolic (congestive) heart failure; N17.9 Acute kidney failure, unspecified; L03.116 Cellulitis of left lower limb; Z66 Do not resuscitate; I11.0 Hypertensive heart disease with heart failure; H54.7 Unspecified visual loss; R18.8 Other ascites; E11.9 Type 2 diabetes mellitus without complications; I27.20 Pulmonary hypertension, unspecified; D64.9 Anemia, unspecified; Z89.421 Acquired absence of other right toe(s); Z79.4 Long term (current) use of insulin; Z79.899 Other long term (current) drug therapy; Z87.891 Personal history of nicotine dependence; Z91.19 Patient's noncompliance with other medical treatment and regimen
CPT/HCPCS: 36415; 71045; 73700-50; 73718-LT; 73718-RT; 80048; 80053; 81001; 82150; 82728; 82962; 83036; 83540; 83550; 83690; 83735; 83880; 84100; 85014; 85018; 85025; 85027; 85651; 86140; 87040; 87077; 87186; 90686; 93306; 97140-GO; 97165-GO; 99284; 99285-25; A9270-GY; J0696; J1644; J1940; J2543; J3370; J7040; J7050